=== PATIENT | male | born 1995 | race Caucasian/White ===

== ENCOUNTER → 2017-03-02 | Outpatient (CLI) | payer OTHER ==
--- NOTE | 2017-03-02 11:45 | DIAGNOSTIC IMAGING REPORT ---
LEFT ANKLE CT CT DOSE: 246.72 mGy.cm HISTORY: LT ANKLE PAIN TECHNIQUE: Multiaxial CT images of the left ankle were performed and reformatted in the sagittal and coronal plane without the use of contrast. COMPARISON: None. FINDINGS: No acute fracture or dislocation within the left ankle. Irregularity/deformity of the lateral malleolus with 2 adjacent well corticated ossific densities consistent with intra-articular loose bodies. The dominant ossific density measures 16 mm. This favors a combination of old avulsion fractures and old, healed fracture of the distal fibula. There is a 4 mm focal cortical defect at the lateral talar dome consistent with an old osteochondral lesion. There appears to be slight deformity/flattening of the talus and mild irregularity of the subtalar joints. There is mild subchondral sclerosis of the subtalar joints and mild cartilage space narrowing. There is also mild cartilage space narrowing at the tibiotalar joint. The mild/irregularity of the talus is also likely due to an old, healed fracture. Mild subcutaneous edema at the heel. The flexor, extensor, peroneal, Achilles tendons are intact. No significant joint effusion. Punctate intra-articular loose body anterior to the sinus tarsi. IMPRESSION: 1. Mild deformity/irregularity of the distal fibula and talus with a few adjacent intra-articular loose bodies. Findings are likely due to old, healed fractures. 2. Mild cartilage space narrowing at the tibiotalar and subtalar joints. There is also mild subchondral cirrhosis and cystic change at the posterior subtalar joint. These findings are consistent with mild osteoarthritis. This is advanced for the patient's age but can be due to prior trauma. 3. A 4 mm osteochondral defect at the lateral talar dome. Electronically signed by: Neo Tompkins M.D. 03/02/2017 11:43 AM Dictated Date/Time: 03/02/2017 11:32 AM
== END | disposition home or self-care (01) ==
LOC: C.CTS 11:18
DX: M25.572 Pain in left ankle and joints of left foot (principal); M95.8 Other specified acquired deformities of musculoskeletal system